=== PATIENT | male | born 1965 | race Caucasian/White ===

== ENCOUNTER 2025-01-22 11:04 | Emergency (ER) | payer SELFPAY ==
[~2025-01-22] VITALS: Ht 180.3 cm; Wt 118.0 kg
[2025-01-22 11:14] VITALS: O2SAT 99
[2025-01-22] MEDS: KETOROLAC 30MG/ML VIAL IM ONE (14:51)
[2025-01-22] MEDS ORDERED: CEPH500C2 MT (16:52)
[2025-01-22] MEDS ORDERED: CYCL5TAB3 MT (16:52)
[2025-01-22] MEDS ORDERED: IBUP-2029 MT (16:52)
[2025-01-22 17:14] VITALS: TEMP 36.6
[2025-01-22 17:41] LABS: CLARITY URINE CLEAR (CLEAR); COLOR URINE YELLOW (YELLOW); GLUCOSE URINE 2+ (NEGATIVE); KETONES URINE TRACE (NEGATIVE); LEUKOCYTE ESTERASE URINE NEGATIVE (NEGATIVE); NITRITE URINE NEGATIVE (NEGATIVE); OCCULT BLOOD URINE 1+ (NEGATIVE); PH URINE 5.5 (4.5-8.0); PROTEIN URINE 4+ (NEGATIVE); SPECIFIC GRAVITY URINE 1.019 (1.005-1.030)
[2025-01-22 18:05] LABS: EOSINOPHILS % 5.3 % (0.0-5.0); HEMATOCRIT. 41.2 % (42.0-52.0); HEMOGLOBIN. 13.8 g/dL (14.0-18.0); LYMPHOCYTES % 21.6 % (20.0-50.0); MEAN CORPUSCULAR HGB CONC 33.6 g/dL (31.0-37.0); MEAN CORPUSCULAR VOLUME 83.2 fL (80.0-94.0); MEAN PLATELET VOLUME 9.2 fl (7.4-10.4); MONOCYTES % 11.4 % (2.0-8.0); NEUTROPHILS % 60.7 % (40.0-76.0); PLATELET 281 x1000/uL (130-400); RED BLOOD CELL COUNT 4.95 mill/uL (4.7-6.1); RED CELL DISTRIBUTION WIDTH 13.5 % (11.6-14.6); WHITE BLOOD COUNT 9.2 x1000/uL (4.5-11.0)
[2025-01-22 18:09] LABS: BACTERIA URINE 1+; SQUAMOUS EPITHELIAL CELL URINE RARE /lpf (RARE/1+); WBC URINE 0-2 /hpf (0-2)
[2025-01-22 18:09] LABS: POTASSIUM 4.1 mEq/L (3.5-5.1)
[2025-01-22 18:10] LABS: YEAST URINE RARE
[2025-01-22 18:10] LABS: CALCIUM 8.7 mg/dL (8.7-10.4)
[2025-01-22 18:15] LABS: CREATININE 1.4 mg/dL (0.6-1.3)
[2025-01-22 19:15] VITALS: BP 212/112; PULSE 77; RESP 18; O2SAT 100
[2025-01-22] MEDS ORDERED: HYDR12.54 MT (19:17)
[2025-01-22] MEDS: CLONIDINE 0.1MG TABLET PO ONE (19:30)
== END 2025-01-22 21:00 | disposition left against medical advice (07) ==
LOC: ER 11:06
DX: S91.302A Unspecified open wound, left foot, initial encounter (principal); M54.50 Low back pain, unspecified; J45.909 Unspecified asthma, uncomplicated; I16.0 Hypertensive urgency; Z79.899 Other long term (current) drug therapy; V99.XXXA Unspecified transport accident, initial encounter; Y93.89 Activity, other specified; Y92.89 Other specified places as the place of occurrence of the external cause; Y99.8 Other external cause status
CPT/HCPCS: 99285; 80048; 81003; 85025; 36415; 72100; 93005; 96372; J1885